=== PATIENT | male | born 1990 | race Caucasian/White ===

== ENCOUNTER 2017-08-03 13:08 | Emergency (ER) ==
[2017-08-03 13:12] VITALS: BP 156/109; TEMP 98; BMI 28.8
--- NOTE | 2017-08-03 13:51 | DI ---
EXAM: LEFT SHOULDER HISTORY: Shoulder pain FINDINGS: Left shoulder three-view. Bone and joint structures are within normal limits. There is no joint dislocation or fracture identified. Bone density and soft tissues are unremarkable. IMPRESSION: Within normal limits.
--- NOTE | 2017-08-03 13:54 | DI ---
EXAM: Left elbow three-view HISTORY: Pain COMPARISON: None FINDINGS: The bones are normal. The alignment is normal. No joint effusion. No focal soft tissue abn ormality. IMPRESSION: Normal examination.
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
== END 2017-08-03 14:24 | disposition home or self-care (01) ==
LOC: ED 13:08
DX: M25.512 Pain in left shoulder (principal); W22.8XXA Striking against or struck by other objects, initial encounter; F17.210 Nicotine dependence, cigarettes, uncomplicated
CPT/HCPCS: 99283

== ENCOUNTER 2019-06-28 08:48 | Emergency (ER) | payer MEDICAID, OTHER ==
[2019-06-28 08:51] VITALS: BP 174/105; TEMP 97.3; BMI 27.3
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
== END 2019-06-28 10:13 | disposition home or self-care (01) ==
LOC: ED 08:48
DX: S90.31XA Contusion of right foot, initial encounter (principal); V09.9XXA Pedestrian injured in unspecified transport accident, initial encounter; F17.210 Nicotine dependence, cigarettes, uncomplicated
CPT/HCPCS: 99283